=== PATIENT | male | born 1990 | race Caucasian/White ===

== ENCOUNTER 2020-04-20 11:05 | Outpatient (REF) | payer OTHER, SELFPAY | END 2020-04-20 11:06 | disposition home or self-care (01) | LOC: HO.HOSX 11:05 | PROVIDERS: Visit Provider Physician Assistant | DX: Z13.89 Encounter for screening for other disorder (principal) ==

== ENCOUNTER 2020-06-02 12:49 | Emergency (ER) | payer OTHER, SELFPAY ==
--- NOTE | ~2020-06-02 | XR_ITS ---
EXAMINATION: XR KNEE, LEFT CLINICAL INFORMATION: Pain COMPARISON: 09/12/2018 TECHNIQUE: Four views of the left knee. FINDINGS: There is no fracture or subluxation. Compartmental joint spaces are maintained. Radiopaque button at the lateral aspect of the distal femur. This is consistent with prior ACL reconstruction. No joint effusion. The soft tissues are unremarkable. XR/XR knee LT 4V IMPRESSION: Evidence of prior ACL reconstruction. No osseous abnormality.
--- NOTE | ~2020-06-02 | XR_ITS ---
EXAMINATION: XR LUMBOSACRAL SPINE CLINICAL INFORMATION: Pain COMPARISON: None TECHNIQUE: Three views of the lumbosacral spine. FINDINGS: No fracture or subluxation. Vertebral body height and alignment is maintained. Mild disc space narrowing of L4-L5. Remaining disc spaces are maintained. The sacrum appears intact. The sacroiliac joints are symmetric. XR/XR lumbar spine 2-3V IMPRESSION: No acute osseous abnormality. Mild disc space narrowing of L4-L5.
--- NOTE | ~2020-06-02 | XR_ITS ---
EXAMINATION: XR HIP, LEFT CLINICAL INFORMATION: Pain COMPARISON: None TECHNIQUE: Two views of the left hip. Lateral view of the pelvis. FINDINGS: No fracture or dislocation. Alignment is anatomic. Joint spaces are maintained. The pelvic rim is intact. The sacroiliac joints and pubic symphysis are intact. The bowel gas pattern is unremarkable. XR/XR hip LT w PEL1V IMPRESSION: Normal left hip.
[2020-06-02 13:30] VITALS: BP 142/86; PULSE 80; RESP 16; TEMP 36.2; O2SAT 97; BMI 29.0
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
== END 2020-06-02 15:20 | disposition home or self-care (01) ==
PROVIDERS: Emergency Provider Emergency Medicine Emergency Medical Services; PCP Internal Medicine
DX: M54.5 Low back pain (principal); G89.21 Chronic pain due to trauma; M25.552 Pain in left hip; M25.562 Pain in left knee
CPT/HCPCS: 72100; 73502; 73564; 99283

== ENCOUNTER 2024-01-17 09:53 | Emergency (ER) | payer OTHER, SELFPAY ==
--- NOTE | ~2024-01-17 | XR_ITS ---
EXAMINATION: XR CHEST CLINICAL INFORMATION: Shortness of breath COMPARISON: X-ray dated June 08, 2015 TECHNIQUE: 2 views of the chest were obtained. FINDINGS: No consolidation, pleural effusion or pneumothorax. Cardiomediastinal silhouette is normal. S-shaped curvature of the thoracolumbar spine. XR/XR chest 2V IMPRESSION: No acute airspace disease. Electronically signed by: Jesus Harrison MD 01/17/2024 10:26 AM ANA[facility]ELLE
[2024-01-17 10:02] VITALS: BP 125/63; PULSE 72; RESP 20; TEMP 36.9; O2SAT 97; BMI 29.0
--- NOTE | 2024-01-17 10:25 | ED.SOB ---
HPI - SOB/Dyspnea General Chief Complaint: Dyspnea Stated Complaint: trouble breathing Time Seen by Provider: 01/17/24 10:09 Source: patient Mode of arrival: ambulatory History of Present Illness ED Provider: Melany FLANAGAN Narrative: 33-year-old male who presents as an everyday cigarette smoker, also smokes cannabis, occasionally vapes, last vaping was yesterday also has a history of mild asthma and comes in with worsening shortness of breath over the past few days without associated fever, chills, sore throat or ear pain. Denies any sick contacts. Related Data Previous Rx's ?Medication ?Instructions ?Recorded ibuprofen 800 mg tablet 800 mg PO Q8H PRN pain 15 days #30 02/01/20 tabs ciclopirox 1 % shampoo 5 ml topical 2XW 4 weeks #120 mL 02/02/20 omeprazole 20 mg capsule,delayed 20 mg PO DAILY 30 days #30 caps 07/12/20 release meloxicam 15 mg tablet 15 mg PO DAILY #14 tabs 10/11/21 mometasone 0.1 % topical cream 1 appl topical DAILY 1 week #45 10/11/21 grams carisoprodol 350 mg tablet 350 mg PO TID PRN muscle pain 7 10/16/21 days #21 tabs oxycodone 5 mg tablet 5 mg PO BID PRN pain #5 tabs 05/28/22 azithromycin 250 mg tablet See Rx Instructions PO .COMPLEX #6 02/08/23 tabs azithromycin 250 mg tablet See Rx Instructions PO .COMPLEX #6 03/22/23 tabs albuterol sulfate 90 mcg/actuation 2 puff inhalation Q4-6H PRN 01/17/24 aerosol inhaler (Ventolin HFA) shortness of breath or wheezing #8.5 grams prednisone 50 mg tablet 50 mg PO DAILY 4 days #4 tabs 01/17/24 Allergies Allergy/AdvReac Type Severity Reaction Status Date / Time aripiprazole [Abilify] Allergy Unknown Unknown Verified 01/17/24 10:05 divalproex sodium [Depakote] Allergy Unknown Unknown Verified 01/17/24 10:05 ziprasidone [Geodon] Allergy Unknown Unknown Verified 01/17/24 10:05 naproxen Allergy Nose Bleed Verified 01/17/24 10:05 tramadol Allergy Vomiting Verified 01/17/24 10:05 Review of Systems Review of Systems: Pertinent positives and negatives as stated in HPI [facility] Past Medical History Medical History Smoker GERD (gastroesophageal reflux disease) Overweight (BMI 25.0-29.9) GERD without esophagitis Tick bite Left lumbosacral radiculopathy Asthma Psoriasis-eczema overlap condition Fall Surgical History History of knee surgery H/O right knee surgery Family History Family History Father No problems noted. Mother No problems noted. Social History Social History Housing: House Alcohol intake: current Alcohol intake frequency: holidays/special occasions only Patient Tobacco Use Status: Current everyday Tobacco user Tobacco use type: Cigarette Cigarettes Per Day: 4 Smoked in Last 30 Days: Yes e-Cigarette/Vaping Use: Currently Using Second Hand Smoke Exposure: Yes Use of substances other than those prescribed or required for medical reasons: Yes Substance Use Type: Marijuana Advance Directives: No Advance Directives Information Provided: No service: No Current occupational status: unemployed Cognitive needs: No Hearing needs: No Vision needs: No Physical Exam Vital Signs: Vital Signs: Last Vital Signs Temp 98.5 F 01/17/24 10:02 Pulse 88 01/17/24 10:33 Resp 16 01/17/24 10:33 BP 125/63 01/17/24 10:02 Pulse Ox 97 01/17/24 10:02 O2 Del Method Room Air 01/17/24 10:02 BMI result Body Mass Index 29.0 VITAL SIGNS: Reviewed. GENERAL: Well developed, well nourished, in no acute distress. HEAD: Normocephalic/atraumatic EYES: PERRLA, EOMI EARS: Ext canals without abnormality, TMs non-bulging and non-erythematous NOSE: Nares patent bilateral OROPHARYNX: no oral lesions noted, posterior pharynx clear and non-erythematous without noted tonsillar enlargement/erythema/exudates NECK: Supple, no adenopathy LUNGS: Good inspiratory effort, no tachypnea or increased work of breathing or retractions noted. No significant expiratory wheeze noted. SpO2<97> CARDIOVASCULAR: Regular rate and rhythm without noted murmurs ABDOMEN: Soft, non-tender, non-distended with bowel sounds. MUSCULOSKELETAL: No tenderness, deformities, or effusions noted on gross inspection. EXTREMITIES: No cyanosis, clubbing or edema. SKIN: Inspection of the skin reveals no rashes NEUROLOGIC: Alert and oriented x 4. Strength and sensation to light touch were grossly intact x 4. Medications Administered Discontinued Medications Generic Name Dose Route Start Last Admin Trade Name Joeq PRN Reason Stop Dose Admin Acetaminophen 975 mg 01/17/24 10:27 01/17/24 10:38 Acetaminophen 325 Mg Tablet PO 01/17/24 10:28 975 mg ONCE ONE Administration Albuterol Sulfate 5 mg/ 0 mg 01/17/24 10:15 01/17/24 10:30 Albuterol/Ipratropium 3 ml INHALE 01/17/24 10:16 7.5 each ONCE ONE Administration Ibuprofen 400 mg 01/17/24 10:27 01/17/24 10:38 Ibuprofen 400 Mg Tablet PO 01/17/24 10:28 400 mg ONCE ONE Administration Prednisone 50 mg 01/17/24 10:15 01/17/24 10:39 Prednisone 10 Mg Tablet PO 01/17/24 10:16 50 mg ONCE ONE Administration Medical Decision Making Medical Decision Making [facility] Narrative: 33-year-old male with history and clinical presentation, DDX: Bronchitis with possible mild asthma exacerbation though he has no clinical or objective data to suggest hypoxia or increased work of breathing. Low clinical suspicion for viral illness or pneumonia but will rule out. INTERVENTION: Tylenol, ibuprofen, DuoNeb, prednisone 50 mg I reviewed and interpreted all investigations and chest x-ray does not demonstrate any infiltrate or venous congestion otherwise my interpretation is in agreement with radiology's impression. Viral testing is negative for RSV/COVID-19/influenza. On re-evaluation patient is feeling improved and is otherwise discharged with a short course of steroids and a prescription for Ventolin inhaler. Differential Diagnosis Differential Diagnoses: The differential diagnosis associated with the presentation includes See above Admission/Observation Consideration of admission/observation: Escalation of care including admission/observation considered Patient does not meet inpatient level of care. Lab Data [facility] Lab Attestation statement: I reviewed the patient's lab results. See above Labs: Lab Results 01/17/24 Range/Units 10:16 Influenza Type A (PCR) NEGATIVE (Negative) Influenza Type B (PCR) NEGATIVE (Negative) RSV RNA Qual (PCR) NEGATIVE (Negative) SARS-CoV-2 RNA (RT-PCR) NEGATIVE (Negative) Radiology Impression Discussion of test interpretation with radiology: I have reviewed the radiologist's reading. Radiologist Impression: See above Discharge Plan Discharge Clinical Impression: Bronchitis, Asthma Patient Disposition: Home, Self-Care Instructions: Asthma (ED), Acute Bronchitis (ED) Additional Instructions: You have been prescribed an albuterol inhaler, you also need to complete the short course of steroids that you have been prescribed. Follow-up with your primary care doctor and do not hesitate to return to the emergency room for any acute worsening of your symptoms. Prescriptions: New albuterol sulfate [Ventolin HFA] 90 mcg/actuation HFA aerosol inhaler 2 puff inhalation Q4-6H PRN (Reason: shortness of breath or wheezing) Qty: 8.5 0RF prednisone 50 mg tablet 50 mg PO DAILY 4 Days Qty: 4 0RF No Action carisoprodol 350 mg tablet 350 mg PO TID PRN (Reason: muscle pain) 7 Days Qty: 21 0RF oxycodone 5 mg tablet 5 mg PO BID PRN (Reason: pain) Qty: 5 0RF Rx Instructions: Partial Fill upon patient request. azithromycin 250 mg tablet See Rx Instructions PO .COMPLEX Qty: 6 0RF Rx Instructions: take 500 mg today (day 1), then 250 mg for 4 days (days 2-5) PO azithromycin 250 mg tablet See Rx Instructions PO .COMPLEX Qty: 6 0RF Rx Instructions: take 500 mg today (day 1), then 250 mg for 4 days (days 2-5) PO ibuprofen 800 mg tablet 800 mg PO Q8H PRN (Reason: pain) 15 Days Qty: 30 0RF ciclopirox 1 % shampoo 5 ml topical 2XW 28 Days Qty: 120 0RF omeprazole 20 mg capsule,delayed release(DR/EC) 20 mg PO DAILY 30 Days Qty: 30 3RF mometasone 0.1 % cream 1 appl topical DAILY 7 Days Qty: 45 0RF meloxicam 15 mg tablet 15 mg PO DAILY Qty: 14 0RF Referrals: Keaton Abrams MD [Primary Care Provider] - Print Language: Kosovan
[2024-01-17] MEDS: Albuterol Sulfate 5 MG, Albuterol/Iprat 2.5/0.5MG 3 ML 3 ML INHALE (10:30)
[2024-01-17 10:33] VITALS: PULSE 88; RESP 16; O2SAT 97
[2024-01-17] MEDS: Acetaminophen 325 MG TABLET 975 MG PO (10:38)
[2024-01-17] MEDS: Ibuprofen 400 MG TABLET PO (10:38)
[2024-01-17] MEDS: predniSONE 10 MG TABLET 50 MG PO (10:39)
--- NOTE | 2024-01-17 10:45 | PC.NURSE ---
patient a&ox3, vss, nasal swab performed, cxr performed, updraft given by RT, pt medicated per order, pts rr equal/non labored, lungs currently diminished throughout, pt awaiting results, will continue plan of care
[2024-01-17 10:59] LABS: Influenza A PCR NEGATIVE (Negative); Influenza B PCR NEGATIVE (Negative); Resp Syncy Virus RNA Qual PCR NEGATIVE (Negative); SARS COV2 PCR INHOUSE NEGATIVE (Negative)
[2024-01-17 11:42] VITALS: BP 121/66; PULSE 82; RESP 18; TEMP 36.7; O2SAT 98
== END 2024-01-17 11:43 | disposition home or self-care (01) ==
PROVIDERS: Emergency Provider Student in an Organized Health Care Education/Training Program; PCP Internal Medicine
DX: J40 Bronchitis, not specified as acute or chronic (principal); R06.02 Shortness of breath; L40.9 Psoriasis, unspecified
CPT/HCPCS: 0241U; 71046; 94640; 99284

== ENCOUNTER → 2024-01-17 10:09 | Outpatient (BNV) | payer OTHER, SELFPAY | PROVIDERS: Emergency Provider Student in an Organized Health Care Education/Training Program; PCP Internal Medicine; Visit Provider Radiology Diagnostic Radiology | DX: R06.02 Shortness of breath (principal) | CPT/HCPCS: 71046 ==

== ENCOUNTER 2024-03-30 18:59 | Emergency (ER) | payer OTHER, SELFPAY ==
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
[2024-03-30 19:08] VITALS: BP 146/81; PULSE 64; RESP 16; TEMP 36.7; O2SAT 98; BMI 29.8
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
[2024-03-30 20:49] VITALS: BP 135/81; PULSE 68; RESP 16; TEMP 36.9; O2SAT 96
[2024-03-30 20:52] VITALS: BP 135/81; PULSE 68; RESP 16; TEMP 36.9; O2SAT 96
== END 2024-03-30 21:08 | disposition home or self-care (01) ==
LOC: HO.ED 21:04
PROVIDERS: Emergency Provider Emergency Medicine; PCP Internal Medicine
DX: Z04.1 Encounter for examination and observation following transport accident (principal); M54.2 Cervicalgia; M25.562 Pain in left knee; M54.50 Low back pain, unspecified
CPT/HCPCS: 70450; 72100; 72125; 73562; 99282; 99284

== ENCOUNTER → 2024-03-30 19:11 | Outpatient (BNV) | payer OTHER, SELFPAY | PROVIDERS: Emergency Provider Emergency Medicine; PCP Internal Medicine; Visit Provider Student in an Organized Health Care Education/Training Program | DX: M25.562 Pain in left knee (principal); M54.50 Low back pain, unspecified; M54.2 Cervicalgia; Z04.3 Encounter for examination and observation following other accident; V89.2XXA Person injured in unspecified motor-vehicle accident, traffic, initial encounter | CPT/HCPCS: 70450; 72100; 72125; 73562 ==

== ENCOUNTER 2024-04-03 14:23 | Outpatient (AMB) | payer OTHER, SELFPAY ==
[2024-04-03 14:40] VITALS: BP 100/64; PULSE 74; O2SAT 96; BMI 29.4
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
== END 2024-04-03 15:44 | disposition home or self-care (01) ==
PROVIDERS: PCP Internal Medicine; Visit Provider Internal Medicine
DX: M54.2 Cervicalgia (principal); M25.561 Pain in right knee; Z04.3 Encounter for examination and observation following other accident; M25.562 Pain in left knee; M54.50 Low back pain, unspecified; V89.2XXD Person injured in unspecified motor-vehicle accident, traffic, subsequent encounter

== ENCOUNTER → 2024-04-03 14:23 | Outpatient (BNVA) | payer OTHER, SELFPAY | PROVIDERS: PCP Internal Medicine; Visit Provider Internal Medicine | DX: M54.2 Cervicalgia (principal); M25.561 Pain in right knee; M25.562 Pain in left knee; M54.50 Low back pain, unspecified | CPT/HCPCS: 96127; 99212 ==

== ENCOUNTER 2024-04-08 13:39 | Emergency (ER) | payer OTHER, SELFPAY ==
[2024-04-08 13:47] VITALS: BP 144/89; PULSE 95; RESP 20; TEMP 37.4; O2SAT 96; BMI 29.2
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
[2024-04-08 15:13] LABS: MANUAL DIFF FLAG NO
[2024-04-08 15:16] LABS: Basophils Absolute Auto 0.1 X10*3/uL (0.0-0.2); Basophils Percent Auto 1.2 % (0-2); Eosinophils Percent Auto 0.5 % (0-4); Hemoglobin 16.7 g/dl (14.0-18.0); Imm Gran Abs Auto 0.01 X10*3/uL (0.00-0.03); Imm Gran Pct Auto 0.2 % (0.0-0.4); Lymphocytes Absolute Auto 0.4 X10*3/uL (1.2-4.9); Lymphocytes Percent Auto 9.1 % (20-40); Mean Corpuscular HGB Conc 35.5 g/dl (31.0-36.0); Mean Corpuscular Hemoglobin 31.9 pg (27.0-33.0); Mean Corpuscular Volume 89.7 fL (80.0-98.0); Mean Platelet Volume 9.6 fL (9.4-12.4); Monocytes Absolute Auto 0.5 X10*3/uL (0.1-1.2); Monocytes Percent Auto 12.3 % (2-11); Neutrophils Absolute Auto 3.1 x10*3/uL (2.0-8.3); Neutrophils Percent Auto 76.7 % (45-73); Platelet Count 178 X10*3/uL (160-400); Red Blood Count 5.24 X10*6/uL (4.60-5.80); Red Cell Distribution Width 11.8 % (11.0-16.0); White Blood Count 4.1 X10*3/uL (4.8-10.8)
[2024-04-08 15:36] LABS: Alanine Aminotransferase 31 U/L (0-40); Albumin Level 4.2 g/dL (3.5-5.0); Anion Gap 13 (12-20); Aspartate Amino Transferase 35 U/L (5-37); Bilirubin Total 0.5 mg/dL (0.0-1.0); Blood Urea Nitrogen 9 mg/dL (9-16); Calcium 9.1 mg/dL (8.4-10.2); Carbon Dioxide 24 mmol/L (22-29); Chloride 102 mmol/L (96-108); Creatinine Clr Calc Pharmacy 133.1; Estimated Glomerular Filt Rate > 60; Glucose Random 120 mg/dL (60-115); Lipase 10 U/L (8-78); Sodium 135 mmol/L (135-145); Total Protein 7.3 g/dL (6.5-8.0)
--- NOTE | 2024-04-08 15:51 | ECG_ITS ---
Test Reason : DIZZINESS Blood Pressure : */* mmHG Vent. Rate : 92 BPM Atrial Rate : 92 BPM P-R Int : 150 ms QRS Dur : 92 ms QT Int : 338 ms P-R-T Axes : 32 75 45 degrees QTcB Int : 417 ms Normal sinus rhythm Normal ECG No previous ECGs available Referred By: Saira Taveras Electronically Signed By: Dominic Grant
[2024-04-08 15:53] VITALS: BP 111/75; PULSE 91; RESP 20; TEMP 37.6; O2SAT 96
[2024-04-08] MEDS: Acetaminophen 325 MG TABLET 650 MG PO (15:55)
[2024-04-08 16:23] LABS: Troponin-I High Sensitivity < 2.7 ng/L (<3.5-35.0)
[2024-04-08 16:51] LABS: Influenza A PCR NEGATIVE (Negative); Influenza B PCR POSITIVE (Negative); Resp Syncy Virus RNA Qual PCR NEGATIVE (Negative); SARS COV2 PCR INHOUSE NEGATIVE (Negative)
[2024-04-08 18:11] LABS: Alkaline Phosphatase 47 U/L (39-117)
== END 2024-04-08 21:37 | disposition left against medical advice (07) ==
PROVIDERS: Physician Assistant Medical; Emergency Provider Emergency Medicine; PCP Internal Medicine
DX: J10.1 Influenza due to other identified influenza virus with other respiratory manifestations (principal); R42 Dizziness and giddiness
CPT/HCPCS: 0241U; 36415; 80053; 83690; 83735; 84484; 85025; 93005; 99282; 99283

== ENCOUNTER → 2024-04-08 15:51 | Outpatient (BNV) | payer OTHER, SELFPAY | PROVIDERS: Emergency Provider Emergency Medicine; PCP Internal Medicine; Visit Provider Internal Medicine Cardiovascular Disease | DX: R42 Dizziness and giddiness (principal) | CPT/HCPCS: 93010 ==

== ENCOUNTER 2024-04-09 16:47 | Emergency (ER) | payer OTHER, SELFPAY ==
--- NOTE | ~2024-04-09 | XR_ITS ---
CLINICAL HISTORY: cough 1 view chest x-ray Comparison: CR/ME/SR - XR CHEST 2V - 01/17/24 10:21 EST Findings: No consolidation or effusion. Heart size is normal. No acute fracture. IMPRESSION: 1. No acute findings. This document has been electronically signed by: Deana Lind MD on 04/09/2024 18:00:02
[2024-04-09 17:11] VITALS: BP 137/80; PULSE 110; RESP 20; TEMP 36.1; O2SAT 98; BMI 28.7
--- NOTE | 2024-04-09 17:12 | ED_ITS ---
HPI - Nausea/Vomiting/Diarrhea General Chief complaint: Upper Respiratory Symptoms Stated complaint: flu like symptoms Related Data Previous Rx's ?Medication ?Instructions ?Recorded ibuprofen 800 mg tablet 800 mg PO Q8H PRN pain 15 days #30 02/01/20 tabs ciclopirox 1 % shampoo 5 ml topical 2XW 4 weeks #120 mL 02/02/20 omeprazole 20 mg capsule,delayed 20 mg PO DAILY 30 days #30 caps 07/12/20 release meloxicam 15 mg tablet 15 mg PO DAILY #14 tabs 10/11/21 mometasone 0.1 % topical cream 1 appl topical DAILY 1 week #45 10/11/21 grams carisoprodol 350 mg tablet 350 mg PO TID PRN muscle pain 7 10/16/21 days #21 tabs cyclobenzaprine 5 mg tablet 5 mg PO TID PRN muscle spasm/pain 04/03/24 #30 tabs acetaminophen 500 mg capsule 1,000 mg (2 x 500 mg) PO Q6H PRN 04/10/24 fever #30 caps albuterol sulfate 90 mcg/actuation 2 puff inhalation Q4-6H PRN 04/10/24 aerosol inhaler (Ventolin HFA) shortness of breath or wheezing #8.5 grams oseltamivir 75 mg capsule (Tamiflu) 75 mg PO BID 5 days #10 caps 04/10/24 Allergies Allergy/AdvReac Type Severity Reaction Status Date / Time aripiprazole [Abilify] Allergy Unknown Unknown Verified 04/10/24 13:51 divalproex sodium [Depakote] Allergy Unknown Unknown Verified 04/10/24 13:51 ziprasidone [Geodon] Allergy Unknown Unknown Verified 04/10/24 13:51 naproxen Allergy Nose Bleed Verified 04/10/24 13:51 tramadol Allergy Vomiting Verified 04/10/24 13:51 [facility] Past Medical History Medical History (Updated 04/10/24 @ 14:15 by Mary Berger NP) Smoker GERD (gastroesophageal reflux disease) Overweight (BMI 25.0-29.9) GERD without esophagitis Tick bite Left lumbosacral radiculopathy Asthma Psoriasis-eczema overlap condition Fall Surgical History History of knee surgery H/O right knee surgery Family History Family History Father No problems noted. Mother No problems noted. Social History Social History Housing: House Alcohol intake: current Alcohol intake frequency: holidays/special occasions only Patient Tobacco Use Status: Current everyday Tobacco user Tobacco use type: Cigarette Cigarettes Per Day: 4 e-Cigarette/Vaping Use: Currently Using Second Hand Smoke Exposure: Yes Substance Use Type: Marijuana service: No Current occupational status: unemployed Cognitive needs: No Hearing needs: No Vision needs: No Physical Exam 2 Vital Signs: Vital Signs: Last Vital Signs Temp 98.2 F 04/09/24 19:35 Pulse 93 04/09/24 19:35 Resp 16 04/09/24 19:35 BP 132/78 04/09/24 19:35 Pulse Ox 98 04/09/24 19:35 O2 Del Method Room Air 04/09/24 19:35 BMI result Body Mass Index 28.7 Course Course Course Narrative: This is a rapid medical exam performed by Lianet White PA-C. Patient is a 34-year-old male with a history of asthma who presents with cough and cold symptoms x2 days. Patient states his entire family is sick with viral syndrome. Associated nausea vomiting diarrhea, fever, cough and wheezing. On exam, the patient is not wheezing at this time, and is hemodynamically stable. We will be screening basic labs, chest x-ray and a viral panel. The patient is able to return to the waiting room pending his full medical assessment. Medical Decision Making Lab Data 04/09/24 17:22 04/09/24 17:22 Labs: Lab Results 04/09/24 Range/Units 17:22 WBC 6.6 (4.8-10.8) X10*3/uL RBC 5.21 (4.60-5.80) X10*6/uL Hgb 16.3 (14.0-18.0) g/dl Hct 46.2 (42.0-52.0) % MCV 88.7 (80.0-98.0) fL MCH 31.3 (27.0-33.0) pg MCHC 35.3 (31.0-36.0) g/dl RDW 11.9 (11.0-16.0) % Plt Count 151 L (160-400) X10*3/uL MPV 9.6 (9.4-12.4) fL Immature Gran % (Auto) 0.2 (0.0-0.4) % Neut % (Auto) 82.4 H (45-73) % Lymph % (Auto) 11.6 L (20-40) % [place] % (Auto) 5.5 (2-11) % Eos % (Auto) 0.0 (0-4) % Baso % (Auto) 0.3 (0-2) % Lymph # (Auto) 0.8 L (1.2-4.9) X10*3/uL [place] # (Auto) 0.4 (0.1-1.2) X10*3/uL Eos # (Auto) 0.0 (0.0-0.4) X10*3/uL Baso # (Auto) 0.0 (0.0-0.2) X10*3/uL Abs Immat Gran (auto) 0.01 (0.00-0.03) X10*3/uL Absolute Neuts (auto) 5.4 (2.0-8.3) x10*3/uL Absolute Nucleated RBC 0.000 (0.0-0.012) X10*3/uL Nucleated RBC % (auto) 0.0 (0.0-0.2) /100WBC Sodium 131 L (135-145) mmol/L Potassium 3.6 (3.3-5.1) mmol/L Chloride 98 (96-108) mmol/L Carbon Dioxide 25 (22-29) mmol/L Anion Gap 12 (12-20) BUN 14 (9-16) mg/dL Creatinine 0.99 (0.5-1.4) mg/dL Estim Creat Clear Calc 121.3 Estimated GFR > 60 Random Glucose 114 (60-115) mg/dL Calcium 9.0 (8.4-10.2) mg/dL Magnesium 1.6 (1.6-2.6) mg/dL Total Bilirubin 0.4 (0.0-1.0) mg/dL AST 37 (5-37) U/L ALT 37 (0-40) U/L Alkaline Phosphatase 51 (39-117) U/L Total Protein 7.2 (6.5-8.0) g/dL Albumin 4.3 (3.5-5.0) g/dL Influenza Type A (PCR) NEGATIVE (Negative) Influenza Type B (PCR) POSITIVE A (Negative) RSV RNA Qual (PCR) NEGATIVE (Negative) SARS-CoV-2 RNA (RT-PCR) NEGATIVE (Negative) Discharge Plan Discharge Clinical Impression: Upper respiratory infection Patient Disposition: Left W/O Completing Treatment Prescriptions: No Action carisoprodol 350 mg tablet 350 mg PO TID PRN (Reason: muscle pain) 7 Days Qty: 21 0RF ibuprofen 800 mg tablet 800 mg PO Q8H PRN (Reason: pain) 15 Days Qty: 30 0RF ciclopirox 1 % shampoo 5 ml topical 2XW 28 Days Qty: 120 0RF omeprazole 20 mg capsule,delayed release(DR/EC) 20 mg PO DAILY 30 Days Qty: 30 3RF mometasone 0.1 % cream 1 appl topical DAILY 7 Days Qty: 45 0RF meloxicam 15 mg tablet 15 mg PO DAILY Qty: 14 0RF cyclobenzaprine 5 mg tablet 5 mg PO TID PRN (Reason: muscle spasm/pain) Qty: 30 0RF acetaminophen 500 mg capsule 1,000 mg PO Q6H PRN (Reason: fever) Qty: 30 0RF oseltamivir [Tamiflu] 75 mg capsule 75 mg PO BID 5 Days Qty: 10 0RF albuterol sulfate [Ventolin HFA] 90 mcg/actuation HFA aerosol inhaler 2 puff inhalation Q4-6H PRN (Reason: shortness of breath or wheezing) Qty: 8.5 0RF Discharge Date/Time: 04/09/24 22:19
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
[2024-04-09 17:26] LABS: MANUAL DIFF FLAG NO
[2024-04-09 17:27] LABS: Basophils Percent Auto 0.3 % (0-2); Hematocrit 46.2 % (42.0-52.0); Hemoglobin 16.3 g/dl (14.0-18.0); Imm Gran Abs Auto 0.01 X10*3/uL (0.00-0.03); Imm Gran Pct Auto 0.2 % (0.0-0.4); Lymphocytes Absolute Auto 0.8 X10*3/uL (1.2-4.9); Lymphocytes Percent Auto 11.6 % (20-40); Mean Corpuscular HGB Conc 35.3 g/dl (31.0-36.0); Mean Corpuscular Hemoglobin 31.3 pg (27.0-33.0); Mean Corpuscular Volume 88.7 fL (80.0-98.0); Mean Platelet Volume 9.6 fL (9.4-12.4); Monocytes Absolute Auto 0.4 X10*3/uL (0.1-1.2); Monocytes Percent Auto 5.5 % (2-11); Neutrophils Absolute Auto 5.4 x10*3/uL (2.0-8.3); Neutrophils Percent Auto 82.4 % (45-73); Platelet Count 151 X10*3/uL (160-400); Red Blood Count 5.21 X10*6/uL (4.60-5.80); Red Cell Distribution Width 11.9 % (11.0-16.0); White Blood Count 6.6 X10*3/uL (4.8-10.8)
[2024-04-09 17:41] LABS: Alanine Aminotransferase 37 U/L (0-40); Albumin Level 4.3 g/dL (3.5-5.0); Alkaline Phosphatase 51 U/L (39-117); Anion Gap 12 (12-20); Aspartate Amino Transferase 37 U/L (5-37); Bilirubin Total 0.4 mg/dL (0.0-1.0); Blood Urea Nitrogen 14 mg/dL (9-16); Carbon Dioxide 25 mmol/L (22-29); Chloride 98 mmol/L (96-108); Creatinine Clr Calc Pharmacy 121.3; Estimated Glomerular Filt Rate > 60; Glucose Random 114 mg/dL (60-115); Magnesium 1.6 mg/dL (1.6-2.6); Potassium 3.6 mmol/L (3.3-5.1); Sodium 131 mmol/L (135-145); Total Protein 7.2 g/dL (6.5-8.0)
[2024-04-09 18:04] LABS: Influenza A PCR NEGATIVE (Negative); Influenza B PCR POSITIVE (Negative); Resp Syncy Virus RNA Qual PCR NEGATIVE (Negative); SARS COV2 PCR INHOUSE NEGATIVE (Negative)
[2024-04-09 19:35] VITALS: BP 132/78; PULSE 93; RESP 16; TEMP 36.8; O2SAT 98
--- NOTE | 2024-04-09 22:19 | PC.NURSE ---
called multiple times w/ no answer. LWCT.
== END 2024-04-09 22:19 | disposition left against medical advice (07) ==
PROVIDERS: Physician Assistant Medical; Emergency Provider Emergency Medicine
DX: J06.9 Acute upper respiratory infection, unspecified (principal); R05.9 Cough, unspecified; Z03.818 Encounter for observation for suspected exposure to other biological agents ruled out; Z79.899 Other long term (current) drug therapy
CPT/HCPCS: 0241U; 71045; 80053; 83735; 85025; 99282; 99283

== ENCOUNTER → 2024-04-09 17:11 | Outpatient (BNV) | payer OTHER, SELFPAY | PROVIDERS: Emergency Provider Emergency Medicine; Visit Provider Radiology Diagnostic Radiology | DX: R05.9 Cough, unspecified (principal) | CPT/HCPCS: 71045 ==

== ENCOUNTER → 2024-04-10 13:30 | Outpatient (AMB) ==
--- NOTE | 2024-04-10 13:50 | MHC.PC.OV ---
Vital Signs 04/10/24 13:50 Height 5 ft 10 in Weight 200 lb 4 oz BMI 28.7 BP 110/80 Blood Pressure Location Rt femoral Position Sitting Pulse 100 Pulse Source Pulse Oximeter Pulse Oximetry (%) 97 Oxygen Delivery Method Room Air Intake Visit Reasons: Cough and Congested Reservation Manager Required: No Accompanied by: Self / Same As Patient Allergies aripiprazole [Abilify] Allergy (Unknown, Verified 04/10/24 13:51) Unknown divalproex sodium [Depakote] Allergy (Unknown, Verified 04/10/24 13:51) Unknown ziprasidone [Geodon] Allergy (Unknown, Verified 04/10/24 13:51) Unknown naproxen Allergy (Verified 04/10/24 13:51) Nose Bleed tramadol Allergy (Verified 04/10/24 13:51) Vomiting Tobacco use date assessed: 04/10/24 Dental Screening Dental Screen Date: 04/10/24 HPI HPI Comments History of Present Illness Details 34 y/o male patient who presents to the clinic for the same day visit. Reports Cough, body aches, fatigue, Subjective fevers and Nausea/vomiting for few days now. [place] went [place] [facility] [place] (04[place] & 04/09) and left both days without being treated. He tested positive for Influenza B Wed but did not receive Tx since left ED AMA. [facility] Medical History (Updated 04/10/24 @ 14:15 by Mary Berger NP) Smoker GERD (gastroesophageal reflux disease) Overweight (BMI 25.0-29.9) GERD without esophagitis Tick bite Left lumbosacral radiculopathy Asthma Psoriasis-eczema overlap condition Fall Surgical History History of knee surgery H/O right knee surgery Family History Father No problems noted. Mother No problems noted. Social History Housing: House Alcohol intake: current Alcohol intake frequency: holidays/special occasions only Patient Tobacco Use Status: Current everyday Tobacco user Tobacco use type: Cigarette Cigarettes Per Day: 4 e-Cigarette/Vaping Use: Currently Using Second Hand Smoke Exposure: Yes Substance Use Type: Marijuana service: No Current occupational status: unemployed Cognitive needs: No Hearing needs: No Vision needs: No Questionnaire PHQ-9 Over the last 2 weeks, how often have you been bothered by any of the following problems? 1. Little interest or pleasure in doing things: not at all 2. Feeling down, depressed, or hopeless: several days 3. Trouble falling or staying asleep, or sleeping too much: several days 4. Feeling tired or having little energy: several days 5. Poor appetite or overeating: several days 6. Feeling bad about yourself - or that you are a failure or have let yourself or your family down: not at all 7. Trouble concentrating on things, such as reading the newspaper or watching television: several days 8. Moving or speaking so slowly that other people could have noticed. Or the opposite - being so fidgety or restless that you have been moving around a lot more than usual: not at all 9. Thoughts that you would be better off or of hurting yourself in some way: not at all Total score: 5 Depression Screening Interpretation: Positive Depression Screening Follow-up: Existing condition and Community Mental Health Worker F/U Depression Screening Done: Yes 80008 - PHQ-9 Billing: Yes Source: Developed by Drs. Freddy Head, Jacqueline Youngblood, Ba Arellano and colleagues, with an educational maribel from [employer]. Thrive Questionnaire Date Thrive assessed: 04/10/24 I am a: Patient What is your living situation today?: I have a steady place to live Within the past 12 months, did the food you bought not last and you didn't have the money to get more?: Never true Within the past 12 months, did you worry whether your food would run out before you got money to buy more?: Never true Do you have trouble paying for medicines?: No Do you have trouble getting transportation to medical appointments?: No Do you have trouble paying your heating and electricity bill?: No Do you have trouble taking care of your child, family member or friend?: No Do you have trouble with day-to-day activities such as bathing, preparing meals, shopping, managing finances, etc.?: No Are you currently unemployed and looking for a job?: No Are you interested in more education?: No Please select the resources that you would like help with: None Currently or been in a relationship where the following occur: No concerns reported THRIVE Score: 0 AUDIT C Alcohol Use Questionnaire (AUDIT-C) 1. How often do you have a drink containing alcohol?: Monthly or less 2. How many drinks containing alcohol do you have on a typical day when you are drinking?: 1 or 2 3. How often do you have six or more drinks on one occasion?: Never Total Score: 1 Score Reviewed/Action Taken: Yes WHIT-7 AMB Questionnaire WHIT-7 Date WHIT - 7 assessed: 04/10/24 Feeling nervous, anxious, or on edge: 1 = Several days Not being able to stop or control worryin = Several days Worrying too much about different things: 1 = Several days Trouble relaxin = Several days Being so restless that it is hard to sit still: 1 = Several days Becoming easily annoyed or irritable: 0 = Not at all Feeling afraid as if something awful might happen: 0 = Not at all Total WIHT-7 score (0-4 normal; 5-9 mild; 10-14 moderate; 15-21 severe): 5 Source: Developed by Drs. Freddy Head, Jacqueline Youngblood, Ba Arellano and colleagues, with an educational maribel from [employer]. Review of Systems Const All systems reviewed & are unremarkable except as noted in HPI and below Physical exam (Primary Care) Vital Signs: Last Vital Signs Pulse 100 04/10/24 13:50 BP 110/80 04/10/24 13:50 Pulse Ox 97 04/10/24 13:50 Oxygen Delivery Method Room Air 04/10/24 13:50 BMI result Body Mass Index 28.7 Tobacco/Smoking Status: Tobacco use Status Tobacco use date assessed 04/10/24 04/10/24 13:54 Patient Tobacco Use Status Current everyday Tobacco 04/10/24 13:54 Tobacco use type Cigarette 04/10/24 13:54 e-Cigarette/Vaping Use Currently Using 04/10/24 13:54 PHQ-9: PHQ-9 Score PHQ-9: Total score 5 04/10/24 13:54 Depression Screening Interpretation: Positive Depression Screening Follow-up: Existing condition and Community Mental Health Worker F/U Thrive Assessment: Date of Thrive Assessment Date Thrive assessed 04/10/24 04/10/24 13:54 Currently or been in a relationship where the following occur: No concerns reported Const General: cooperative and no acute distress Orientation/consciousness: patient oriented x3 Resp Effort & Inspection: normal respiratory effort and able to speak in complete sentences Auscultation: clear to auscultation bilaterally, no crackles, no rales, no rhonchi and no wheezes Cardio Heart sounds: S1 normal heart sound present and S2 normal heart sound present Neuro General: patient oriented x3, gait normal and moves all extremities Psych Speech and movement: Normal speech and movement present Coding Level of Care Code Est Pt Level 4 (16136) Diagnoses Influenza B J10.1 Additional Codes PHQ-9 - 31152 - PHQ-9 Billing: Yes ([id number]) Time Spent (min) 20 Assessment & Plan Assessment & Plan (1) Influenza B: Code(s): J10.1 - Influenza due to other identified influenza virus with other respiratory manifestations Category: Medical Plan: Ordered Tamiflu Ordered Acetaminophen for pain and fever relief. Rest and hydrate well with plenty of fluids. Medications: New acetaminophen 1,000 mg (2 x 500 mg) PO Q6H PRN 30 caps 0RF fever J10.1 - Influenza due to other identified influenza virus with other respiratory manifestations oseltamivir (Tamiflu) 75 mg PO BID 10 caps 0RF 5 days J10.1 - Influenza due to other identified influenza virus with other respiratory manifestations Refilled albuterol sulfate 90 mcg/actuation (Ventolin HFA) 2 puffs inhalation Q4-6H PRN 8.5 grams 0RF shortness of breath or wheezing J45.909 - Unspecified asthma, uncomplicated
== END | disposition home or self-care (01) ==
DX: J10.1 Influenza due to other identified influenza virus with other respiratory manifestations (principal)

== ENCOUNTER → 2024-04-10 13:30 | Outpatient (BNVA) | DX: J10.1 Influenza due to other identified influenza virus with other respiratory manifestations (principal) | CPT/HCPCS: 96127; 99212 ==